=== PATIENT | female | born 1945 | race Caucasian/White ===

== ENCOUNTER → 2024-07-06 13:35 | Outpatient (REF) | payer OTHER, SELFPAY | LOC: HWRCS 13:35 | PROVIDERS: ATTENDING PHYSICIAN Internal Medicine Cardiovascular Disease; FAMILY PHYSICIAN Internal Medicine | DX: I48.21 Permanent atrial fibrillation (principal); I27.20 Pulmonary hypertension, unspecified | CPT/HCPCS: 93306 ==